=== PATIENT | male | born 1995 | race Two or more races ===

== ENCOUNTER 2022-07-07 21:27 | Emergency (ER) | payer SELFPAY ==
[~2022-07-07] VITALS: Ht 172.7 cm; Wt 160.0 kg
[2022-07-07 21:27] VITALS: BP 122/80
== END 2022-07-08 01:34 | disposition home or self-care (01) ==
LOC: ER 21:27 → EDBD 21:27 → ER 07-08 01:34
DX: S00.83XA Contusion of other part of head, initial encounter (principal); M79.644 Pain in right finger(s); Y04.8XXA Assault by other bodily force, initial encounter; Y93.89 Activity, other specified; Y92.89 Other specified places as the place of occurrence of the external cause; Y99.8 Other external cause status
CPT/HCPCS: 70486; 73130